=== PATIENT | female | born 1965 | race Two or more races ===

== ENCOUNTER 2019-01-09 10:10 | Emergency (ER) | payer MEDICARE ==
--- NOTE | 2019-01-09 12:10 | CRLCR ---
HISTORY: Chest pain COMPARISON: None available FINDINGS: A portable erect AP view of the chest was obtained at 1055 hours. Incidental note is made of a calcified granuloma in the lateral left upper chest. The lungs are otherwise clear. No focal or diffuse infiltrates are present. The heart is normal in size. The mediastinum is normal in appearance. The osseous structures are normal in appearance for the patient`s age. IMPRESSION: No active disease seen in the chest. Dictated by Amos Ortiz MD @ Jan 09 2019 12:07PM Signed by Dr. Amos Ortiz @ Jan 09 2019 12:08PM
--- NOTE | 2019-01-09 12:17 | EDM.PDOC ---
ED HPI GENERAL MEDICAL PROBLEM - General Chief Complaint: Chest Pain Stated Complaint: [facility] Time Seen by Provider: 01/09/19 12:14 Source of Information: Reports: Patient History Limitations: Reports: No Limitations - History of Present Illness INITIAL COMMENTS - FREE TEXT/NARRATIVE: pt arrived with a history of increased chest pain for the past month. She has used nitro. She had the pain wake her up this am at 4 am and she took nitro and would get relief and then the pain would come back. She has a hsitory of multiple stents ans she also has coronary artery spasm Onset: Today, Other ( started at 4 am. ) Duration: Hour(s): Location: Reports: Chest Associated Symptoms: Reports: Chest Pain, Shortness of Breath Chest Pain Score (Numeric/FACES): 1 Neck Pain Score (Numeric/FACES): 9 - Related Data Allergies Allergy/AdvReac Type Severity Reaction Status Date / Time acetaminophen [From Vicodin] Allergy Other Verified 01/09/19 12:58 banana Allergy Other Verified 01/09/19 12:58 clopidogrel [From Plavix] Allergy Other Verified 01/09/19 12:58 droperidol Allergy Anxiety Verified 01/09/19 12:58 gabapentin Allergy Swelling Verified 01/09/19 12:58 hydrocodone [From Vicodin] Allergy Other Verified 01/09/19 12:58 prochlorperazine Allergy Tachycardia Verified 01/09/19 10:25 [From Compazine] sertraline [From Zoloft] Allergy Hallucinati Verified 01/09/19 12:58 ons sumatriptan [From Imitrex] Allergy Tachycardia Verified 01/09/19 10:25 varenicline [From Chantix] Allergy Other Verified 01/09/19 12:58 atropine AdvReac Itching Verified 01/09/19 12:58 Home Meds: Home Meds ALPRAZolam [Alprazolam] 0.5 mg PO TID 01/09/19 [History] Apixaban [Eliquis] 5 mg PO BID 01/09/19 [History] Aspirin [Ecotrin EC] 325 mg PO DAILY 01/09/19 [History] Carvedilol 25 mg PO TID 01/09/19 [History] Diazepam [Valium] 10 mg PO TID 01/09/19 [History] Diclofenac Sodium [Voltaren] 100 gm TP QID 01/09/19 [History] Famotidine [Pepcid] 20 mg PO BID 01/09/19 [History] Furosemide 40 mg PO DAILY 01/09/19 [History] Ibuprofen [Motrin] 600 mg PO Q6H PRN 01/09/19 [History] Isosorbide Mononitrate [Imdur] 120 mg PO DAILY 01/09/19 [History] Losartan Potassium 100 mg PO DAILY 01/09/19 [History] Morphine [MS Contin] 60 mg PO BID 01/09/19 [History] NIFEdipine [Adalat cc] 60 mg PO DAILY 01/09/19 [History] Nitroglycerin 0.4 mg SL ASDIRECTED 01/09/19 [History] Potassium Chloride 10 meq PO BID 01/09/19 [History] Prasugrel HCl [Effient] 10 mg PO DAILY 01/09/19 [History] Pregabalin [Lyrica] 75 mg PO TID 01/09/19 [History] Ranolazine [Ranolazine ER] 500 mg PO BID 01/09/19 [History] Sotalol HCl [Sorine] 80 mg PO BID 01/09/19 [History] atorvaSTATin [Lipitor] 40 mg PO BEDTIME 01/09/19 [History] hydrOXYzine HCl [Atarax] 25 mg PO TID 01/09/19 [History] oxyCODONE 5 mg PO QID 01/09/19 [History] traZODone 150 mg PO DAILY 01/09/19 [History] Past Medical History HEENT History: Reports: Cataract Cardiovascular History: Reports: Angina, Blood Clots/VTE/DVT, Bypass, CAD, Heart Failure, High Cholesterol, Hypertension, SOB on Exertion, Stents, Other ( See Below) Other Cardiovascular History: heart spasms Respiratory History: Reports: [employer] History: Reports: Musculoskeletal History: Reports: Arthritis, Fracture, Neck Pain, Chronic Neurological History: Reports: Migraines Psychiatric History: Reports: Anxiety, Depression, Other (See Below) Other Psychiatric History: insomnia - Past Surgical History Cardiovascular Surgical History: Reports: Coronary Artery Stent Female Surgical History: Reports: Section Musculoskeletal Surgical History: Reports: Arthroscopic Knee Social & Family History - Tobacco Use Smoking Status *Q: Current Every Day Smoker Years of Tobacco use: 32 Packs/Tins Daily: 1 - Caffeine Use Caffeine Use: Reports: None - Recreational Drug Use Recreational Drug Use: No ED ROS GENERAL - Review of Systems Review Of Systems: See Below Constitutional: Reports: No Symptoms HEENT: Reports: No Symptoms Respiratory: Reports: Shortness of Breath Cardiovascular: Reports: Chest Pain Endocrine: Reports: No Symptoms GI/Abdominal: Reports: No Symptoms : Reports: No Symptoms Musculoskeletal: Reports: No Symptoms Skin: Reports: No Symptoms ED EXAM, GENERAL - Physical Exam Exam: See Below Free Text/Narrative:: pt arrived with pain in her left chest. She is mildly sob. Pt had taken 6 nitros prior to arrival. Exam Limited By: No Limitations General Appearance: Alert, No Apparent Distress, Anxious, Other (pt was pain free on arrival ) Ears: Normal TMs Nose: Normal Inspection Throat/Mouth: Normal Inspection Head: Atraumatic Neck: Normal Inspection Respiratory/Chest: No Respiratory Distress Cardiovascular: Regular Rate, Rhythm GI/Abdominal: Soft, Non-Tender (Female) Exam: Deferred Rectal (Female) Exam: Deferred Back Exam: Normal Inspection Extremities: Normal Inspection Neurological: Alert, Oriented, Normal Cognition Psychiatric: Normal Affect Course - Vital Signs Last Recorded V/S: Last Vital Signs Temp 36.3 C 01/09/19 10:16 Pulse 94 01/09/19 14:16 Resp 15 01/09/19 14:16 BP 193/107 H 01/09/19 14:16 Pulse Ox 96 01/09/19 14:16 - Orders/Labs/Meds Orders: Active Orders 24 hr Category Date Time Status EKG Documentation Completion [RC] ASDIRECTED Care 01/09/19 10:21 Active EKG 12 Lead [EK] Routine Ther 01/09/19 10:21 Ordered Labs: Laboratory Tests 01/09/19 01/09/19 01/09/19 Range/Units 10:54 10:54 10:54 WBC 11.8 H (4.5-11.0) K/uL RBC 4.92 (3.30-5.50) M/uL Hgb 15.4 H (12.0-15.0) g/dL Hct 44.7 (36.0-48.0) % MCV 91 (80-98) fL MCH 31 (27-31) pg MCHC 35 (32-36) % Plt Count 218 (150-400) K/uL Neut % (Auto) 75 H (36-66) % Lymph % (Auto) 15 L (24-44) % [place] % (Auto) 10 H (2-6) % Eos % (Auto) 1 L (2-4) % Baso % (Auto) 0 (0-1) % Sodium 139 L (140-148) mmol/L Potassium 3.7 (3.6-5.2) mmol/L Chloride 103 (100-108) mmol/L Carbon Dioxide 27 (21-32) mmol/L Anion Gap 12.7 (5.0-14.0) mmol/L BUN 6 L (7-18) mg/dL Creatinine 0.8 (0.6-1.0) mg/dL Est Cr Clr Drug Dosing 70.23 mL/min Estimated GFR (MDRD) > 60 (>60) Glucose 147 H (74-106) mg/dL Calcium 8.3 L (8.5-10.1) mg/dL Total Bilirubin 0.4 (0.2-1.0) mg/dL AST 18 (15-37) U/L ALT 31 (12-78) U/L Alkaline Phosphatase 180 H (46-116) U/L Troponin I 0.020 (0.000-0.056) ng/mL Total Protein 7.4 (6.4-8.2) g/dL Albumin 3.0 L (3.4-5.0) g/dL Globulin 4.4 H (2.3-3.5) g/dL Albumin/Globulin Ratio 0.7 L (1.2-2.2) 01/09/19 Range/Units 13:19 WBC (4.5-11.0) K/uL RBC (3.30-5.50) M/uL Hgb (12.0-15.0) g/dL Hct (36.0-48.0) % MCV (80-98) fL MCH (27-31) pg MCHC (32-36) % Plt Count (150-400) K/uL Neut % (Auto) (36-66) % Lymph % (Auto) (24-44) % [place] % (Auto) (2-6) % Eos % (Auto) (2-4) % Baso % (Auto) (0-1) % Sodium (140-148) mmol/L Potassium (3.6-5.2) mmol/L Chloride (100-108) mmol/L Carbon Dioxide (21-32) mmol/L Anion Gap (5.0-14.0) mmol/L BUN (7-18) mg/dL Creatinine (0.6-1.0) mg/dL Est Cr Clr Drug Dosing mL/min Estimated GFR (MDRD) (>60) Glucose (74-106) mg/dL Calcium (8.5-10.1) mg/dL Total Bilirubin (0.2-1.0) mg/dL AST (15-37) U/L ALT (12-78) U/L Alkaline Phosphatase (46-116) U/L Troponin I < 0.017 (0.000-0.056) ng/mL Total Protein (6.4-8.2) g/dL Albumin (3.4-5.0) g/dL Globulin (2.3-3.5) g/dL Albumin/Globulin Ratio (1.2-2.2) Meds: Medications Discontinued Medications Generic Name Dose Route Start Last Admin Trade Name Mustapha PRN Reason Stop Dose Admin Baclofen 10 mg 01/09/19 13:13 01/09/19 13:25 Lioresal PO 01/09/19 13:14 10 mg ONETIME ONE Administration Hydromorphone HCl 0.5 mg 01/09/19 13:13 01/09/19 13:24 Dilaudid IM 01/09/19 13:14 0.5 mg ONETIME ONE Administration - Re-Assessments/Exams Free Text/Narrative Re-Assessment/Exam: 01/09/19 14:43 pt had 2 trops both of which was neg. Her chest pain has not returned. She has neck pain on the rt She had a cervical spine series which shows degenerative changes. She was given baclofen and dilaudid for pain Departure - Departure Time of Disposition: 14:39 Disposition: Home, Self-Care 01 Condition: Fair Clinical Impression: Atypical chest pain, Cervical paraspinal muscle spasm, History of coronary artery stent placement - Discharge Information Referrals: PCP,None [Primary Care Provider] - Forms: ED Department Discharge Care Plan Goals: moist warm heat to post cervical area, baclofen 10 mg bid, tramodol 50 mg q6h prn for pain, rtc if pain should get worse. [facility] was contacted and they will set up a urgent appt with Dr Nguyen--cardiology - My Orders Last 24 Hours: My Active Orders 01/09/19 10:21 EKG Documentation Completion [RC] ASDIRECTED EKG 12 Lead [EK] Routine - Assessment/Plan Last 24 Hours: My Active Orders 01/09/19 10:21 EKG Documentation Completion [RC] ASDIRECTED EKG 12 Lead [EK] Routine
[2019-01-09] MEDS ORDERED: HYDROmorphone 0.5 MG/0.5 ML Syringe IM ONE (13:13)
[2019-01-09] MEDS ORDERED: Baclofen 10 MG Tab PO ONE (13:13)
--- NOTE | 2019-01-09 14:34 | CRLCR ---
INDICATION: Severe right-sided neck pain TECHNIQUE: Flexion, extension, lateral, swimmer`s, frontal, and open mouth odontoid views were obtained. COMPARISON: None FINDINGS: The lateral views include the skull base to the mid thoracic spine. Bones: Alignment is normal. No fractures or significant bone lesions. The flexion and extension views only include the skullbase to the C6 level. No anterolisthesis identified when comparing the flexion and extension views. Joints: Mild multilevel degenerative disc and facet changes. Soft tissues: Unremarkable. IMPRESSION: No acute abnormality identified. Consider MRI for further evaluation of neck pain. Dictated by Elizabeth Acevedo MD @ Jan 09 2019 2:33PM Signed by Dr. Elizabeth Acevedo @ Jan 09 2019 2:33PM
== END 2019-01-09 14:54 | disposition home or self-care (01) ==
LOC: JP.ED 10:10
DX: R07.89 Other chest pain (principal); M62.838 Other muscle spasm; I11.0 Hypertensive heart disease with heart failure; I50.9 Heart failure, unspecified; E78.00 Pure hypercholesterolemia, unspecified; F41.9 Anxiety disorder, unspecified; F32.9 Major depressive disorder, single episode, unspecified; G43.909 Migraine, unspecified, not intractable, without status migrainosus; F17.210 Nicotine dependence, cigarettes, uncomplicated; Z95.5 Presence of coronary angioplasty implant and graft; Z86.711 Personal history of pulmonary embolism; Z88.6 Allergy status to analgesic agent; Z88.5 Allergy status to narcotic agent; Z91.018 Allergy to other foods; Z88.8 Allergy status to other drugs, medicaments and biological substances; Z79.82 Long term (current) use of aspirin; Z79.899 Other long term (current) drug therapy; Z86.718 Personal history of other venous thrombosis and embolism
CPT/HCPCS: 36415; 71045; 72050; 80053; 84484; 85025; 93005; 96372; 99283; 99285; A9270; J1170

== ENCOUNTER 2019-04-04 07:13 | Emergency (ER) | payer MEDICARE ==
--- NOTE | 2019-04-04 07:19 | EDM.PDOC ---
ED HPI GENERAL MEDICAL PROBLEM - General Chief Complaint: Chest Pain Stated Complaint: CHEST PAIN Time Seen by Provider: 04/04/19 07:19 Source of Information: Reports: Patient History Limitations: Reports: No Limitations - History of Present Illness INITIAL COMMENTS - FREE TEXT/NARRATIVE: pt woke up at 12 midnight and she had chest pain. She took a nitro ad she did get relief. She woke up again this am and she had chest pain and she was sweaty at this time. n Onset: Today, Sudden Duration: Hour(s): Location: Reports: Chest Associated Symptoms: Reports: Chest Pain, Diaphoresis, Nausea/Vomiting, Other ( pt did not vomit but was nauseated and did take zoforan. ) - Related Data Allergies Allergy/AdvReac Type Severity Reaction Status Date / Time acetaminophen [From Vicodin] Allergy Other Verified 04/04/19 07:18 banana Allergy Other Verified 04/04/19 07:18 clopidogrel [From Plavix] Allergy Other Verified 04/04/19 07:18 droperidol Allergy Anxiety Verified 04/04/19 07:18 gabapentin Allergy Swelling Verified 04/04/19 07:18 hydrocodone [From Vicodin] Allergy Other Verified 04/04/19 07:18 prochlorperazine Allergy Tachycardia Verified 04/04/19 07:18 [From Compazine] sertraline [From Zoloft] Allergy Hallucinati Verified 04/04/19 07:18 ons sumatriptan [From Imitrex] Allergy Tachycardia Verified 04/04/19 07:18 varenicline [From Chantix] Allergy Other Verified 04/04/19 07:18 atropine AdvReac Itching Verified 04/04/19 07:18 Home Meds: Home Meds Apixaban [Eliquis] 5 mg PO BID 01/09/19 [History] Aspirin [Ecotrin EC] 325 mg PO DAILY 01/09/19 [History] Furosemide 40 mg PO DAILY 01/09/19 [History] Ibuprofen [Motrin] 600 mg PO Q6H PRN 01/09/19 [History] Isosorbide Mononitrate [Imdur] 120 mg PO DAILY 01/09/19 [History] Losartan Potassium 100 mg PO DAILY 01/09/19 [History] Morphine [MS Contin] 60 mg PO BID 01/09/19 [History] NIFEdipine [Adalat cc] 60 mg PO DAILY 01/09/19 [History] Nitroglycerin 0.4 mg SL ASDIRECTED 01/09/19 [History] Potassium Chloride 10 meq PO BID 01/09/19 [History] Prasugrel HCl [Effient] 10 mg PO DAILY 01/09/19 [History] Ranolazine [Ranolazine ER] 500 mg PO BID 01/09/19 [History] Sotalol HCl [Sorine] 80 mg PO BID 01/09/19 [History] atorvaSTATin [Lipitor] 40 mg PO BEDTIME 01/09/19 [History] carvediloL [Carvedilol] 25 mg PO TID 01/09/19 [History] oxyCODONE 5 mg PO QID 01/09/19 [History] Past Medical History HEENT History: Reports: Cataract Cardiovascular History: Reports: Angina, Blood Clots/VTE/DVT, Bypass, CAD, Heart Failure, High Cholesterol, Hypertension, SOB on Exertion, Stents, Other ( See Below) Other Cardiovascular History: heart spasms 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: Musculoskeletal History: Reports: Arthritis, Fracture, Neck Pain, Chronic Neurological History: Reports: Migraines Psychiatric History: Reports: Anxiety, Depression, Other (See Below) Other Psychiatric History: insomnia - Past Surgical History Cardiovascular Surgical History: Reports: Coronary Artery Stent Female Surgical History: Reports: Section Musculoskeletal Surgical History: Reports: Arthroscopic Knee Social & Family History - Caffeine Use Caffeine Use: Reports: None ED ROS GENERAL - Review of Systems Review Of Systems: See Below Constitutional: Reports: Diaphoresis, Other (pt vomited once and she took nitro each time. She did think she got some relief with the nitro. ) HEENT: Reports: No Symptoms Respiratory: Reports: Shortness of Breath Cardiovascular: Reports: Chest Pain, Other (pain is low in the chest and she did vomit. Pt is painfree at this time. ) Endocrine: Reports: No Symptoms GI/Abdominal: Reports: Nausea, Vomiting : Reports: No Symptoms Musculoskeletal: Reports: No Symptoms Skin: Reports: No Symptoms ED EXAM, GENERAL - Physical Exam Exam: See Below Free Text/Narrative:: pt arrived with lower chest pain and nausea. She did get diaphoretic with the last pain. She did have tacos for supper last nite. Exam Limited By: No Limitations General Appearance: Alert, Anxious, Other (pt is painfree at this time. ) Ears: Normal TMs Nose: Normal Inspection Throat/Mouth: Normal Inspection Head: Atraumatic Neck: Normal Inspection Respiratory/Chest: No Respiratory Distress Cardiovascular: Regular Rate, Rhythm GI/Abdominal: Soft, Tender, Other (pt has some tenderness in the rt upper abdoman. ) (Female) Exam: Deferred Rectal (Female) Exam: Deferred Back Exam: Normal Inspection Extremities: Normal Inspection Neurological: Alert, Oriented, Normal Cognition Psychiatric: Normal Affect Course - Vital Signs Last Recorded V/S: Last Vital Signs Temp 36.0 C 04/04/19 07:15 Pulse 72 04/04/19 09:06 Resp 14 04/04/19 09:06 BP 122/66 04/04/19 09:06 Pulse Ox 94 L 04/04/19 09:06 - Orders/Labs/Meds Orders: Active Orders 24 hr Category Date Time Status EKG Documentation Completion [RC] ASDIRECTED Care 04/04/19 07:18 Active EKG 12 Lead [EK] Routine Ther 04/04/19 07:18 Ordered Labs: Laboratory Tests 04/04/19 04/04/19 04/04/19 Range/Units 07:31 07:31 07:31 WBC 9.4 (4.5-11.0) K/uL RBC 4.85 (3.30-5.50) M/uL Hgb 15.0 (12.0-15.0) g/dL Hct 44.7 (36.0-48.0) % MCV 92 (80-98) fL MCH 31 (27-31) pg MCHC 34 (32-36) % Plt Count 276 (150-400) K/uL Neut % (Auto) 65 (36-66) % Lymph % (Auto) 24 (24-44) % [place] % (Auto) 9 H (2-6) % Eos % (Auto) 2 (2-4) % Baso % (Auto) 0 (0-1) % APTT (27.0-36.0) sec D-Dimer, Quantitative (0.0-400.0) ng/mL Sodium 137 L (140-148) mmol/L Potassium 3.6 (3.6-5.2) mmol/L Chloride 102 (100-108) mmol/L Carbon Dioxide 24 (21-32) mmol/L Anion Gap 14.6 H (5.0-14.0) mmol/L BUN 10 D (7-18) mg/dL Creatinine 1.1 H (0.6-1.0) mg/dL Est Cr Clr Drug Dosing 51.07 mL/min Estimated GFR (MDRD) 52 L (>60) Glucose 150 H (74-106) mg/dL Calcium 7.9 L (8.5-10.1) mg/dL Total Bilirubin 0.4 (0.2-1.0) mg/dL AST 20 (15-37) U/L ALT 32 (12-78) U/L Alkaline Phosphatase 146 H (46-116) U/L Troponin I < 0.017 (0.000-0.056) ng/mL NT-Pro-B Natriuret Pep (5-125) pg/mL Total Protein 7.0 (6.4-8.2) g/dL Albumin 3.0 L (3.4-5.0) g/dL Globulin 4.0 H (2.3-3.5) g/dL Albumin/Globulin Ratio 0.8 L (1.2-2.2) 04/04/19 04/04/19 04/04/19 Range/Units 07:31 07:31 07:31 WBC (4.5-11.0) K/uL RBC (3.30-5.50) M/uL Hgb (12.0-15.0) g/dL Hct (36.0-48.0) % MCV (80-98) fL MCH (27-31) pg MCHC (32-36) % Plt Count (150-400) K/uL Neut % (Auto) (36-66) % Lymph % (Auto) (24-44) % [place] % (Auto) (2-6) % Eos % (Auto) (2-4) % Baso % (Auto) (0-1) % APTT 26.9 L (27.0-36.0) sec D-Dimer, Quantitative 169 (0.0-400.0) ng/mL Sodium (140-148) mmol/L Potassium (3.6-5.2) mmol/L Chloride (100-108) mmol/L Carbon Dioxide (21-32) mmol/L Anion Gap (5.0-14.0) mmol/L BUN (7-18) mg/dL Creatinine (0.6-1.0) mg/dL Est Cr Clr Drug Dosing mL/min Estimated GFR (MDRD) (>60) Glucose (74-106) mg/dL Calcium (8.5-10.1) mg/dL Total Bilirubin (0.2-1.0) mg/dL AST (15-37) U/L ALT (12-78) U/L Alkaline Phosphatase (46-116) U/L Troponin I (0.000-0.056) ng/mL NT-Pro-B Natriuret Pep 313 H (5-125) pg/mL Total Protein (6.4-8.2) g/dL Albumin (3.4-5.0) g/dL Globulin (2.3-3.5) g/dL Albumin/Globulin Ratio (1.2-2.2) 04/04/19 Range/Units 09:23 WBC (4.5-11.0) K/uL RBC (3.30-5.50) M/uL Hgb (12.0-15.0) g/dL Hct (36.0-48.0) % MCV (80-98) fL MCH (27-31) pg MCHC (32-36) % Plt Count (150-400) K/uL Neut % (Auto) (36-66) % Lymph % (Auto) (24-44) % [place] % (Auto) (2-6) % Eos % (Auto) (2-4) % Baso % (Auto) (0-1) % APTT (27.0-36.0) sec D-Dimer, Quantitative (0.0-400.0) ng/mL Sodium (140-148) mmol/L Potassium (3.6-5.2) mmol/L Chloride (100-108) mmol/L Carbon Dioxide (21-32) mmol/L Anion Gap (5.0-14.0) mmol/L BUN (7-18) mg/dL Creatinine (0.6-1.0) mg/dL Est Cr Clr Drug Dosing mL/min Estimated GFR (MDRD) (>60) Glucose (74-106) mg/dL Calcium (8.5-10.1) mg/dL Total Bilirubin (0.2-1.0) mg/dL AST (15-37) U/L ALT (12-78) U/L Alkaline Phosphatase (46-116) U/L Troponin I < 0.017 (0.000-0.056) ng/mL NT-Pro-B Natriuret Pep (5-125) pg/mL Total Protein (6.4-8.2) g/dL Albumin (3.4-5.0) g/dL Globulin (2.3-3.5) g/dL Albumin/Globulin Ratio (1.2-2.2) Meds: Medications Discontinued Medications Generic Name Dose Route Start Last Admin Trade Name Freq PRN Reason Stop Dose Admin Ondansetron HCl 4 mg 04/04/19 08:50 Zofran Odt PO 04/04/19 08:51 ONETIME ONE Oxycodone/Acetaminophen 1 tab 04/04/19 08:27 04/04/19 08:37 Percocet 325-5 Mg PO 04/04/19 08:28 1 tab ONETIME ONE Administration - Re-Assessments/Exams Free Text/Narrative Re-Assessment/Exam: 04/04/19 08:38 pt arrived with a history of 2 episodes of pain in the lower chest area. She did vomit and was very nauseated. She did take zoforan at home. She was painfree on arrival. 04/04/19 08:40 pt has a normal trop and this will be repeated. Her liver enzymes are not elevated except for the alk phos with mild elevation. A USD of her GB shows a good sized stone in the neck of the GB. this could have been the cause of the pain. 04/04/19 10:15 pt had a second trop that was normal. Hospitalization was offered to the pt and she refused. The pt definitely needs a stress test. If she is unwilling to stay will schedule for a stres test and have her return if her pain should reoccur. She does have a history of coronary artery spasm. She also has had stents. Departure - Departure Time of Disposition: 10:17 Disposition: Home, Self-Care 01 Condition: Fair Clinical Impression: Calculus in biliary tract, History of angina Referrals: PCP,None [Primary Care Provider] - Forms: ED Department Discharge Care Plan Goals: pt refused hospitalization, rtc for a lexiscan. Give pt a disc of her US and a copy of the US report. Sepsis Event Note - Evaluation Sepsis Screening Result: No Definite Risk - Focused Exam Vital Signs: Vital Signs Temp Pulse Resp BP Pulse Ox 04/04/19 09:06 72 14 122/66 94 L 04/04/19 08:38 80 12 114/59 L 94 L 04/04/19 08:06 78 15 108/52 L 93 L 04/04/19 07:37 84 14 91/54 L 94 L 04/04/19 07:15 36.0 C 80 13 96/57 L 94 L Date Exam was Performed: 04/04/19 Time Exam was Performed: 10:15 - My Orders Last 24 Hours: My Active Orders 04/04/19 07:18 EKG Documentation Completion [RC] ASDIRECTED EKG 12 Lead [EK] Routine - Assessment/Plan Last 24 Hours: My Active Orders 04/04/19 07:18 EKG Documentation Completion [RC] ASDIRECTED EKG 12 Lead [EK] Routine
--- NOTE | 2019-04-04 08:06 | CRLCR ---
INDICATION: Chest pain. TECHNIQUE: Chest 1 view COMPARISON: Chest radiograph 01/09/2019. FINDINGS: New patchy opacity in the medial right lung base. New hazy opacity in the left lung base. These may represent atelectasis or infiltrate. Calcified granuloma left upper lung. No pleural effusion or pneumothorax. Heart size upper limits of normal. Normal pulmonary vascularity. IMPRESSION: New patchy opacity in the medial right lung base and new hazy opacity in the left lung base. These may represent atelectasis or infiltrate. Dictated by Indu Chang MD @ Apr 04 2019 8:00AM Signed by Dr. Indu Chang @ Apr 04 2019 8:03AM
[2019-04-04] MEDS ORDERED: Acetaminophen/oxyCODONE 325-5 MG Tab PO ONE (08:27)
[2019-04-04] MEDS ORDERED: Ondansetron 4 MG Tab.DIS PO ONE (08:50)
--- NOTE | 2019-04-04 08:59 | CRLUS ---
INDICATION: Right upper abdominal pain and nausea TECHNIQUE: Ultrasound abdomen limited. Sonographic images of the right upper quadrant were obtained using sepulveda-scale and color Doppler images. COMPARISON: FINDINGS: Liver: Mildly diffusely echogenic suggesting fatty infiltration. No masses. No intrahepatic biliary dilatation. Gallbladder: Large 2 cm stone in the neck of the gallbladder. Normal wall thickness. No pericholecystic fluid. Common bile duct: 5.5 mm. Pancreas: Normal. Right kidney: 10.0 x 5.5 x 5.5 cm. Normal echotexture and cortex. No masses, stones, or hydronephrosis. Vasculature: Proximal IVC patent. IMPRESSION: Cholelithiasis without biliary dilatation or gallbladder wall thickening. Dictated by Pernell Rodríguez MD @ Apr 04 2019 8:53AM Signed by Dr. Pernell Rodríguez @ Apr 04 2019 8:56AM
== END 2019-04-04 11:00 | disposition home or self-care (01) ==
LOC: JP.ED 07:13
DX: K80.80 Other cholelithiasis without obstruction (principal); I11.0 Hypertensive heart disease with heart failure; I50.9 Heart failure, unspecified; F41.9 Anxiety disorder, unspecified; F32.9 Major depressive disorder, single episode, unspecified; Z79.82 Long term (current) use of aspirin; Z79.899 Other long term (current) drug therapy; Z91.018 Allergy to other foods; Z88.8 Allergy status to other drugs, medicaments and biological substances
CPT/HCPCS: 36415; 71045; 76705; 80053; 83880; 84484; 85025; 85379; 85730; 93005; 93010; 99285; A9270

== ENCOUNTER 2019-11-01 16:42 | Emergency (ER) | payer MEDICARE ==
--- NOTE | 2019-11-01 17:27 | EDM.PDOC ---
ED HPI GENERAL MEDICAL PROBLEM - General Chief Complaint: Respiratory Problem Stated Complaint: MEDICAL VIA [facility] Time Seen by Provider: 11/01/19 17:10 Source of Information: Reports: Patient, Old Records History Limitations: Reports: No Limitations - History of Present Illness INITIAL COMMENTS - FREE TEXT/NARRATIVE: 54 yo female recently had a CABG in [facility]. She reports a remote hx of severe Legionnaire's Dz requiring intubation for an extended period. Today she fell asleep at home and awoke to a coughing spell that worsened her already mild chronic SOB and worsened her sternal pain. She thinks she developed a panic attack as a result of this. Is breathing better now on low flow oxygen here in the ER. She says it was debated about sending her home on oxygen when she left the hospital and it was decided not to. EMS transported from her home in [place]. A neb tx was administered en route as well as low flow O2. Onset: Today Onset Date: 11/01/19 Duration: Minutes:, Improving Location: Reports: Chest Quality: Reports: Burning (at site of sternotomy) Severity: Moderate Improves with: Reports: Rest Worsens with: Reports: Movement Context: Reports: Other (see HPI) Associated Symptoms: Reports: Chest Pain, Cough, Shortness of Breath. 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, Oxygen Mid-Anterior Chest Pain Score (Numeric/FACES): 7 - Related Data Allergies Allergy/AdvReac Type Severity Reaction Status Date / Time acetaminophen [From Vicodin] Allergy Other Verified 04/04/19 07:18 banana Allergy Other Verified 04/04/19 07:18 clopidogrel [From Plavix] Allergy Other Verified 04/04/19 07:18 droperidol Allergy Anxiety Verified 04/04/19 07:18 gabapentin Allergy Swelling Verified 04/04/19 07:18 hydrocodone [From Vicodin] Allergy Other Verified 04/04/19 07:18 prochlorperazine Allergy Tachycardia Verified 04/04/19 07:18 [From Compazine] sertraline [From Zoloft] Allergy Hallucinati Verified 04/04/19 07:18 ons sumatriptan [From Imitrex] Allergy Tachycardia Verified 04/04/19 07:18 varenicline [From Chantix] Allergy Other Verified 04/04/19 07:18 atropine AdvReac Itching Verified 04/04/19 07:18 Home Meds: Home Meds Apixaban [Eliquis] 5 mg PO BID 01/09/19 [History] Aspirin [Ecotrin EC] 325 mg PO DAILY 01/09/19 [History] Furosemide 40 mg PO DAILY 01/09/19 [History] Ibuprofen [Motrin] 600 mg PO Q6H PRN 01/09/19 [History] Losartan Potassium 100 mg PO DAILY 01/09/19 [History] Nitroglycerin 0.4 mg SL ASDIRECTED 01/09/19 [History] Potassium Chloride 10 meq PO BID 01/09/19 [History] Ranolazine [Ranolazine ER] 500 mg PO BID 01/09/19 [History] oxyCODONE 5 mg PO QID 01/09/19 [History] Albuterol Sulfate [Albuterol Sulfate Hfa] 18 gm IH Q4H PRN #1 hfa.aer.ad 11/01/19 [Rx] Past Medical History HEENT History: Reports: Cataract Cardiovascular History: Reports: Angina, Blood Clots/VTE/DVT, Bypass, CAD, Heart Failure, High Cholesterol, Hypertension, SOB on Exertion, Stents, Other (See Below) Other Cardiovascular History: heart spasms 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: Musculoskeletal History: Reports: Arthritis, Fracture, Neck Pain, Chronic Neurological History: Reports: Migraines Psychiatric History: Reports: Anxiety, Depression, Other (See Below) Other Psychiatric History: insomnia - Infectious Disease History Infectious Disease History: Reports: Chicken Pox - Past Surgical History Cardiovascular Surgical History: Reports: Coronary Artery Stent Female Surgical History: Reports: Section Musculoskeletal Surgical History: Reports: Arthroscopic Knee Social & Family History - Tobacco Use Smoking Status *Q: Former Smoker Used Tobacco, but Quit: Yes Month/Year Tobacco Last Used: - Caffeine Use Caffeine Use: Reports: Soda - Recreational Drug Use Recreational Drug Use: No ED ROS GENERAL - Review of Systems Review Of Systems: See Below Constitutional: Reports: No Symptoms HEENT: Reports: No Symptoms Respiratory: Reports: Shortness of Breath, Wheezing, Cough. Denies: Sputum, Hemoptysis Cardiovascular: Reports: Edema (mild chronic LE edema, not worse.), Other (sternal pain) GI/Abdominal: Reports: No Symptoms : Reports: No Symptoms Musculoskeletal: Reports: No Symptoms Skin: Reports: No Symptoms Neurological: Reports: No Symptoms Psychiatric: Reports: Anxiety ED EXAM, GENERAL - Physical Exam Exam: See Below Exam Limited By: No Limitations General Appearance: Alert, WD/WN, No Apparent Distress Eye Exam: Bilateral Eye: Normal Inspection Ears: Normal External Exam, Normal Canal, Hearing Grossly Normal Ear Exam: Bilateral Ear: Auricle Normal, Canal Normal Nose: Normal Inspection, No Blood Throat/Mouth: Normal Inspection, Normal Lips, Normal Oropharynx, Normal Voice, No Airway Compromise Head: Atraumatic, Normocephalic Neck: Normal Inspection Respiratory/Chest: No Respiratory Distress, No Accessory Muscle Use, Rhonchi (scattered), Wheezing (faint). No: Lungs Clear, Normal Breath Sounds, Chest Non-Tender, Accessory Muscle Use Cardiovascular: Regular Rate, Rhythm, No Edema GI/Abdominal: Normal Bowel Sounds, Soft, Non-Tender, No Distention Back Exam: Normal Inspection Extremities: Normal Inspection, Normal Range of Motion, Non-Tender, Pedal Edema (trace pitting edema to both legs below the knees). No: No Pedal Edema Neurological: Alert, Oriented, CN II-XII Intact, Normal Cognition, No Motor/Sensory Deficits Psychiatric: Normal Affect, Normal Mood Skin Exam: Warm, Dry, Intact, Normal Color, No Rash Course - Vital Signs Last Recorded V/S: Last Vital Signs Temp 36.3 C 11/01/19 17:13 Pulse 87 11/01/19 17:13 Resp 27 H 11/01/19 17:13 BP 134/95 H 11/01/19 17:13 Pulse Ox 87 L 11/01/19 17:13 - Orders/Labs/Meds Orders: Active Orders 24 hr Category Date Time Status Chest 1V Frontal [CR] Stat Exams 11/01/19 17:20 Taken Meds: Medications Discontinued Medications Generic Name Dose Route Start Last Admin Trade Name Freq PRN Reason Stop Dose Admin Furosemide 80 mg 11/01/19 17:39 11/01/19 17:44 Lasix IM 11/01/19 17:40 80 mg ONETIME ONE Administration - Radiology Interpretation Free Text/Narrative:: CXR-new R pleural effusion Departure - Departure Time of Disposition: 18:15 Disposition: Home, Self-Care 01 Clinical Impression: Pleural effusion, right, Bronchospasm, Panic attack - Discharge Information *PRESCRIPTION DRUG MONITORING PROGRAM REVIEWED*: Not Applicable *COPY OF PRESCRIPTION DRUG MONITORING REPORT IN PATIENT [place]AL[place]: Not Applicable Instructions: Bronchospasm, Adult Referrals: PCP,None [Primary Care Provider] - Forms: ED Department Discharge Additional Instructions: Continue your current medications. Add albuterol MDI 2 puffs every 4 hrs as needed. Avoid salt or salty foods. Recheck if worse. Sepsis Event Note (ED) - Evaluation Sepsis Screening Result: No Definite Risk - Focused Exam Vital Signs: Vital Signs Temp Pulse Resp BP Pulse Ox 11/01/19 17:13 36.3 C 87 27 H 134/95 H 87 L 11/01/19 16:50 36.3 C 87 27 H 134/95 H 87 L - My Orders Last 24 Hours: My Active Orders 11/01/19 17:20 Chest 1V Frontal [CR] Stat - Assessment/Plan Last 24 Hours: My Active Orders 11/01/19 17:20 Chest 1V Frontal [CR] Stat
[2019-11-01] MEDS ORDERED: Furosemide 40 MG/4 ML VIAL IM ONE (17:39)
--- NOTE | 2019-11-02 09:10 | CR ---
CHEST: Portable 11/01/2019 at 5:35 PM CLINICAL HISTORY:SOB COMPARISON:04/04/2019 FINDINGS: There has been previous sternotomy. Heart is enlarged. Pulmonary vascular is mildly cephalized. There is blunting the right costophrenic angle. There is patchy infiltrate in the right lower lobe.. Impression: Cardiomegaly with mild vascular cephalization may represent some pulmonary venous hypertension Right lower lobe infiltrate Small right pleural effusion
== END 2019-11-01 18:25 | disposition home or self-care (01) ==
LOC: JP.ED 16:42
DX: J98.01 Acute bronchospasm (principal); J90 Pleural effusion, not elsewhere classified; F41.0 Panic disorder [episodic paroxysmal anxiety]; I25.10 Atherosclerotic heart disease of native coronary artery without angina pectoris; I11.0 Hypertensive heart disease with heart failure; I50.9 Heart failure, unspecified; Z88.6 Allergy status to analgesic agent; Z91.018 Allergy to other foods; Z88.8 Allergy status to other drugs, medicaments and biological substances; Z88.5 Allergy status to narcotic agent; Z87.891 Personal history of nicotine dependence; Z79.82 Long term (current) use of aspirin; Z79.01 Long term (current) use of anticoagulants; Z79.899 Other long term (current) drug therapy; Z86.718 Personal history of other venous thrombosis and embolism; Z86.711 Personal history of pulmonary embolism
CPT/HCPCS: 71045; 96372; 99283; J1940

== ENCOUNTER 2020-06-08 12:49 | Emergency (ER) | payer MEDICARE, MEDICAID ==
[2020-06-08] MEDS ORDERED: Lidocaine 2% Viscous Solution 15 ML Cup ONE (12:56)
[2020-06-08] MEDS ORDERED: Aluminum Hydroxide/Magnesium Hydroxide/Simethicone Susp 30 ML Cup ONE (12:56)
[2020-06-08] MEDS ORDERED: Sodium Chloride 0.9% 10 ML Syringe FLUSH PRN (13:03)
[2020-06-08] MEDS ORDERED: Aspirin 81 MG Tab.Chew PO ONE (13:08)
--- NOTE | 2020-06-08 13:09 | EDM.PDOC ---
ED HPI GENERAL MEDICAL PROBLEM - General Chief Complaint: Cardiovascular Problem Stated Complaint: VOMITTING/RECENT STINT Time Seen by Provider: 06/08/20 13:04 Source of Information: Reports: Patient, Old Records, RN History Limitations: Reports: No Limitations - History of Present Illness INITIAL COMMENTS - FREE TEXT/NARRATIVE: 54 yo black female presents with a 2 hr duration of anterior chest pain with radiation to her anterior neck. Had CABG at [facility] last October. Quit smoking just 7 d ago. Took all her meds today except her aspirin. 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 Lives in [place] and came here today due to it being closer. Has no family doctor. Was lying in bed at onset of today's sx's. Has a pHx also of GB disease. Onset: Today, Sudden Onset Date: 06/08/20 Onset Time: 11:00 Duration: Hour(s): (2), Constant Location: Reports: Neck, Chest Quality: Reports: Pressure Severity: Severe Improves with: Reports: None Worsens with: Reports: None Context: Reports: Other (See HPI) Associated Symptoms: Reports: Nausea/Vomiting. Denies: Chest Pain, Diaphoresis, Fever/Chills, Shortness of Breath Treatments INGOT CASTER: Reports: Other (see below) (none) - Related Data Allergies Allergy/AdvReac Type Severity Reaction Status Date / Time acetaminophen [From Vicodin] Allergy Other Verified 06/08/20 14:14 banana Allergy Other Verified 06/08/20 14:14 clopidogrel [From Plavix] Allergy Other Verified 06/08/20 14:14 droperidol Allergy Anxiety Verified 06/08/20 14:14 gabapentin Allergy Swelling Verified 06/08/20 14:14 hydrocodone [From Vicodin] Allergy Other Verified 06/08/20 14:14 prochlorperazine Allergy Tachycardia Verified 06/08/20 14:14 [From Compazine] sertraline [From Zoloft] Allergy Hallucinati Verified 06/08/20 14:14 ons sumatriptan [From Imitrex] Allergy Tachycardia Verified 06/08/20 14:14 varenicline [From Chantix] Allergy Other Verified 06/08/20 14:14 atropine AdvReac Itching Verified 06/08/20 14:14 Home Meds: Home Meds Apixaban [Eliquis] 5 mg PO BID 01/09/19 [History] Aspirin [Ecotrin EC] 325 mg PO DAILY 01/09/19 [History] Furosemide 40 mg PO DAILY 01/09/19 [History] Ibuprofen [Motrin] 600 mg PO Q6H PRN 01/09/19 [History] Losartan Potassium 100 mg PO DAILY 01/09/19 [History] Nitroglycerin 0.4 mg SL ASDIRECTED 01/09/19 [History] Potassium Chloride 10 meq PO BID 01/09/19 [History] Ranolazine [Ranolazine ER] 500 mg PO BID 01/09/19 [History] oxyCODONE 5 mg PO QID 01/09/19 [History] Albuterol Sulfate [Albuterol Sulfate Hfa] 18 gm IH Q4H PRN #1 hfa.aer.ad 11/01/19 [Rx] Past Medical History HEENT History: Reports: Cataract Cardiovascular History: Reports: Angina, Blood Clots/VTE/DVT, Bypass, CAD, Heart Failure, High Cholesterol, Hypertension, SOB on Exertion, Stents, Other (See Below) Other Cardiovascular History: heart spasms 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: Musculoskeletal History: Reports: Arthritis, Fracture, Neck Pain, Chronic Neurological History: Reports: Migraines Psychiatric History: Reports: Anxiety, Depression, Other (See Below) Other Psychiatric History: insomnia - Infectious Disease History Infectious Disease History: Reports: Chicken Pox - Past Surgical History Cardiovascular Surgical History: Reports: Coronary Artery Stent Female Surgical History: Reports: Section Musculoskeletal Surgical History: Reports: Arthroscopic Knee Social & Family History - Caffeine Use Caffeine Use: Reports: Soda ED ROS GENERAL - Review of Systems Review Of Systems: See Below Constitutional: Reports: No Symptoms HEENT: Reports: No Symptoms Respiratory: Reports: No Symptoms Cardiovascular: Reports: Chest Pain Endocrine: Reports: No Symptoms GI/Abdominal: Reports: Nausea, Vomiting Musculoskeletal: Reports: No Symptoms Skin: Reports: No Symptoms Neurological: Reports: No Symptoms Psychiatric: Reports: No Symptoms ED EXAM, GENERAL - Physical Exam Exam: See Below Exam Limited By: No Limitations General Appearance: Alert, WD/WN, No Apparent Distress, Anxious Eye Exam: Bilateral Eye: Normal Inspection Ears: Normal External Exam, Hearing Grossly Normal Ear Exam: Bilateral Ear: Auricle Normal, Canal Normal Nose: Normal Inspection, No Blood Throat/Mouth: Normal Inspection, Normal Lips, Normal Oropharynx, Normal Voice, No Airway Compromise. No: Normal Teeth (edentulous) Head: Atraumatic, Normocephalic Neck: Normal Inspection Respiratory/Chest: No Respiratory Distress, Lungs Clear, Normal Breath Sounds, No Accessory Muscle Use Cardiovascular: Regular Rate, Rhythm, No Edema GI/Abdominal: Normal Bowel Sounds, Soft, Non-Tender, No Distention Back Exam: Normal Inspection Extremities: Normal Inspection, Normal Range of Motion, Non-Tender, No Pedal Edema. No: Pedal Edema Neurological: Alert, Oriented, CN II-XII Intact, Normal Cognition, No Motor/Sensory Deficits Psychiatric: Normal Affect, Anxious Skin Exam: Warm, Dry, Intact, Normal Color, No Rash #1 Interpretation EKG Date: 06/08/20 Time: 13:20 Rhythm: NSR Rate (Beats/Min): 71 [place]: Normal P-Wave: Present QRS: Normal ST-T: Elevated (subtle new elevation in inferior leads.) QT: Normal Comparison: Change From Previous EKG Course - Vital Signs Text/Narrative:: [facility] called @ 1611h, Last Recorded V/S: Last Vital Signs Temp 36.2 C 06/08/20 15:47 Pulse 43 L 06/08/20 16:34 Resp 17 06/08/20 16:34 BP 113/64 06/08/20 16:34 Pulse Ox 93 L 06/08/20 16:34 - Orders/Labs/Meds Orders: Active Orders 24 hr Category Date Time Status Cardiac Monitoring [RC] .As Directed Care 06/08/20 13:03 Active EKG Documentation Completion [RC] ASDIRECTED Care 06/08/20 13:03 Active Oxygen Therapy Adult [Oxygen Therapy, ED] [RC] Care 06/08/20 14:02 Active ASDIRECTED Abdomen Ltd [US] Stat Exams 06/08/20 14:15 Ordered Chest 1V Frontal [CR] Stat Exams 06/08/20 13:15 Taken Chest 1V Frontal [CR] Stat Exams 06/08/20 15:38 Taken Chest 2V [CR] Stat Exams 06/08/20 15:25 Ordered Heparin Sodium/D5W [Heparin 25,000 Units in D5W 500 ML] Med 06/08/20 14:15 Active 25,000 units in 500 ml IV TITRATE Nitroglycerin [Nitrostat] Med 06/08/20 13:12 Active 0.4 mg SL Q5M PRN Nitroglycerin/D5W [Nitroglycerin 25 MG/D5W 250 ML] Med 06/08/20 16:15 Active 25 mg in 250 ml IV TITRATE Sodium Chloride 0.9% [Saline Flush] Med 06/08/20 13:03 Active 10 ml FLUSH ASDIRECTED PRN Saline Lock Insert [OM.PC] Routine Oth 06/08/20 13:03 Ordered EKG 12 Lead [EK] Routine Ther 06/08/20 13:03 Ordered Medication Orders Heparin Sodium/Dextrose (Heparin 25,000 Units In D5w 500 Ml) 25,000 units in 500 mls @ 20 mls/hr IV TITRATE FRANCESCO Last Admin: 06/08/20 15:24 Dose: 1,000 units/hr, 20 mls/hr Documented by: ALEJANDRO Cosigned by: TIERRA Nitroglycerin/Dextrose (Nitroglycerin 25 Mg/D5w 250 Ml) 25 mg in 250 mls @ 6 mls/hr IV TITRATE FRANCESCO; Protocol Nitroglycerin (Nitrostat) 0.4 mg SL Q5M PRN PRN Reason: Chest Pain Last Admin: 06/08/20 13:17 Dose: 0.4 mg Documented by: RIYA Sodium Chloride (Saline Flush) 10 ml FLUSH ASDIRECTED PRN PRN Reason: Keep Vein Open Last Admin: 06/08/20 15:56 Dose: 10 ml Documented by: ALEJANDRO Labs: Laboratory Tests 06/08/20 06/08/20 06/08/20 Range/Units 13:23 13:23 15:20 WBC 12.6 H (4.5-11.0) K/uL RBC 5.64 H (3.30-5.50) M/uL Hgb 17.2 H D (12.0-15.0) g/dL Hct 51.3 H (36.0-48.0) % MCV 91 (80-98) fL MCH 31 (27-31) pg MCHC 34 (32-36) % Plt Count 281 (150-400) K/uL D-Dimer, Quantitative (0.0-500.0) ng/mL Sodium 141 (140-148) mmol/L Potassium 4.4 (3.6-5.2) mmol/L Chloride 103 (100-108) mmol/L Carbon Dioxide 25 (21-32) mmol/L Anion Gap 13.5 (5.0-14.0) mmol/L BUN 13 (7-18) mg/dL Creatinine 1.1 H (0.6-1.0) mg/dL Est Cr Clr Drug Dosing 50.49 mL/min Estimated GFR (MDRD) 52 L (>60) Glucose 168 H (74-106) mg/dL Calcium 9.4 D (8.5-10.1) mg/dL Troponin I 0.031 0.711 H* (0.000-0.056) ng/mL 06/08/20 Range/Units 15:49 WBC (4.5-11.0) K/uL RBC (3.30-5.50) M/uL Hgb (12.0-15.0) g/dL Hct (36.0-48.0) % MCV (80-98) fL MCH (27-31) pg MCHC (32-36) % Plt Count (150-400) K/uL D-Dimer, Quantitative 774.91 H (0.0-500.0) ng/mL Sodium (140-148) mmol/L Potassium (3.6-5.2) mmol/L Chloride (100-108) mmol/L Carbon Dioxide (21-32) mmol/L Anion Gap (5.0-14.0) mmol/L BUN (7-18) mg/dL Creatinine (0.6-1.0) mg/dL Est Cr Clr Drug Dosing mL/min Estimated GFR (MDRD) (>60) Glucose (74-106) mg/dL Calcium (8.5-10.1) mg/dL Troponin I (0.000-0.056) ng/mL Meds: Medications Generic Name Dose Route Start Last Admin Trade Name Freq PRN Reason Stop Dose Admin Heparin Sodium/Dextrose 25,000 units in 500 mls @ 20 mls/hr 06/08/20 14:15 06/08/20 15:24 Heparin 25,000 Units In D5w 500 Ml IV 1,000 units/hr TITRATE FRANCESCO 20 mls/hr Administration 1,000 UNITS/HR Nitroglycerin/Dextrose 25 mg in 250 mls @ 6 mls/hr 06/08/20 16:15 Nitroglycerin 25 Mg/D5w 250 Ml IV TITRATE FRANCESCO Protocol 10 MCG/MIN Nitroglycerin 0.4 mg 06/08/20 13:12 06/08/20 13:17 Nitrostat SL 0.4 mg Q5M PRN Administration Chest Pain Sodium Chloride 10 ml 06/08/20 13:03 06/08/20 15:56 Saline Flush FLUSH 10 ml ASDIRECTED PRN Administration Keep Vein Open Discontinued Medications Generic Name Dose Route Start Last Admin Trade Name Mustapha PRN Reason Stop Dose Admin Al Hydroxide/Mg Hydroxide Confirm 06/08/20 12:56 Mag-Al Plus Administered 06/08/20 12:57 Dose 30 ml .ROUTE .STK-MED ONE Al Hydroxide/Mg Hydroxide 30 ml 06/08/20 15:41 06/08/20 15:45 Mag-Al Plus PO 06/08/20 15:42 30 ml ONETIME ONE Administration Aspirin 324 mg 06/08/20 13:08 06/08/20 13:14 Aspirin PO 06/08/20 13:09 324 mg ONETIME ONE Administration Atropine Sulfate 0.5 mg 06/08/20 16:32 Atropine 0.1 Mg/Ml IVPUSH 06/08/20 16:33 ONETIME ONE Heparin Sodium (Porcine) 5,000 units 06/08/20 14:01 06/08/20 15:25 Heparin Sodium IVPUSH 06/08/20 14:02 5,000 units ONETIME ONE Administration Heparin Sodium (Porcine) Confirm 06/08/20 15:10 Heparin Lock Flush 100 Units/Ml Administered 06/08/20 15:11 Dose 500 units .ROUTE .STK-MED ONE Hydromorphone HCl 1 mg 06/08/20 15:49 06/08/20 15:55 Dilaudid IVPUSH 06/08/20 15:50 1 mg ONETIME ONE Administration Hydromorphone HCl Confirm 06/08/20 15:51 Dilaudid Administered 06/08/20 15:52 Dose 1 mg .ROUTE .STK-MED ONE Lidocaine HCl Confirm 06/08/20 12:56 Xylocaine 2% Viscous Administered 06/08/20 12:57 Dose 15 ml .ROUTE .STK-MED ONE Lidocaine HCl 15 ml 06/08/20 15:42 06/08/20 15:45 Xylocaine 2% Viscous PO 06/08/20 15:43 15 ml ONETIME ONE Administration Lorazepam 1 mg 06/08/20 14:03 06/08/20 14:09 Ativan PO 06/08/20 14:04 1 mg ONETIME ONE Administration Metoprolol Tartrate 50 mg 06/08/20 13:59 06/08/20 14:10 Lopressor PO 06/08/20 14:00 50 mg ONETIME ONE Administration Morphine Sulfate Confirm 06/08/20 13:23 Morphine Administered 06/08/20 13:24 Dose 4 mg .ROUTE .STK-MED ONE Morphine Sulfate 8 mg 06/08/20 13:56 06/08/20 15:39 Morphine IVPUSH 06/08/20 13:57 8 mg ONETIME ONE Administration Morphine Sulfate 4 mg 06/08/20 14:12 06/08/20 15:37 Morphine IM 06/08/20 14:13 4 mg ONETIME ONE Administration Ondansetron HCl 4 mg 06/08/20 15:21 06/08/20 15:27 Zofran IVPUSH 06/08/20 15:22 4 mg ONETIME ONE Administration - Radiology Interpretation Free Text/Narrative:: CXR-neg GB ultrasound-single stone not impacted. There is a lesion off the bottom of the R kidney. - Re-Assessments/Exams Free Text/Narrative Re-Assessment/Exam: 06/08/20 13:15 no change with GI cocktail po Free Text/Narrative Re-Assessment/Exam: 06/08/20 13:58 Still no relief, will give more morphine. Nursing not able to start an IV, will have anesthesia attempt. Free Text/Narrative Re-Assessment/Exam: 06/08/20 16:08 2nd Trop elevated. Will send to [facility]. 06/08/20 16:33 Still having pain. 06/08/20 16:40 Triple lumen placed R jugular vein by anesthesia. Departure - Departure Time of Disposition: 17:00 Disposition: DC/Tfer to Acute Hospital 02 Reason for Transfer *Q: Other Condition: Serious Clinical Impression: Non-STEMI (non-ST elevated myocardial infarction), Elevated troponin, Elevated blood sugar HTN (hypertension) Qualifiers: Hypertension type: unspecified Qualified Code(s): I10 - Essential (primary) hypertension Referrals: PCP,None [Primary Care Provider] - Forms: ED Department Discharge Sepsis Event Note (ED) - Focused Exam Vital Signs: Vital Signs Temp Pulse Pulse Resp BP BP Pulse Ox 06/08/20 16:34 43 L 17 113/64 93 L 06/08/20 16:30 38 L 13 180/149 H 94 L 06/08/20 16:27 64 13 163/85 H 93 L 06/08/20 15:56 61 19 175/85 H 96 06/08/20 15:47 36.2 C 58 L 13 187/105 H 96 06/08/20 15:24 58 L 13 187/105 H 96 06/08/20 14:30 59 L 19 189/116 H 06/08/20 14:10 66 195/114 H 06/08/20 13:17 167/93 H - My Orders Last 24 Hours: My Active Orders 06/08/20 13:03 Cardiac Monitoring [RC] .As Directed EKG Documentation Completion [RC] ASDIRECTED Sodium Chloride 0.9% [Saline Flush] 10 ml FLUSH ASDIRECTED PRN Saline Lock Insert [OM.PC] Routine EKG 12 Lead [EK] Routine 06/08/20 13:12 Nitroglycerin [Nitrostat] 0.4 mg SL Q5M PRN 06/08/20 13:15 Chest 1V Frontal [CR] Stat 06/08/20 14:02 Oxygen Therapy Adult [Oxygen Therapy, ED] [RC] ASDIRECTED 06/08/20 14:15 Abdomen Ltd [US] Stat Heparin Sodium/D5W [Heparin 25,000 Units in D5W 500 ML] 25,000 units in 500 ml IV TITRATE 06/08/20 15:38 Chest 1V Frontal [CR] Stat 06/08/20 16:15 Nitroglycerin/D5W [Nitroglycerin 25 MG/D5W 250 ML] 25 mg in 250 ml IV TITRATE - Assessment/Plan Last 24 Hours: My Active Orders 06/08/20 13:03 Cardiac Monitoring [RC] .As Directed EKG Documentation Completion [RC] ASDIRECTED Sodium Chloride 0.9% [Saline Flush] 10 ml FLUSH ASDIRECTED PRN Saline Lock Insert [OM.PC] Routine EKG 12 Lead [EK] Routine 06/08/20 13:12 Nitroglycerin [Nitrostat] 0.4 mg SL Q5M PRN 06/08/20 13:15 Chest 1V Frontal [CR] Stat 06/08/20 14:02 Oxygen Therapy Adult [Oxygen Therapy, ED] [RC] ASDIRECTED 06/08/20 14:15 Abdomen Ltd [US] Stat Heparin Sodium/D5W [Heparin 25,000 Units in D5W 500 ML] 25,000 units in 500 ml IV TITRATE 06/08/20 15:38 Chest 1V Frontal [CR] Stat 06/08/20 16:15 Nitroglycerin/D5W [Nitroglycerin 25 MG/D5W 250 ML] 25 mg in 250 ml IV TITRATE
[2020-06-08] MEDS ORDERED: Nitroglycerin 0.4 MG Tab.SL SL PRN (13:12)
[2020-06-08] MEDS ORDERED: Morphine 4 MG/ML Syringe ONE (13:23)
[2020-06-08] MEDS ORDERED: Morphine 10 MG/ML Syringe IVPUSH ONE (13:56)
[2020-06-08] MEDS ORDERED: Metoprolol Tartrate 50 MG Tab PO ONE (13:59)
[2020-06-08] MEDS ORDERED: Heparin Sodium 5,000 Units/ML Vial IVPUSH ONE (14:01)
[2020-06-08] MEDS ORDERED: LORazepam 1 MG Tab PO ONE (14:03)
[2020-06-08] MEDS ORDERED: Morphine 4 MG/ML Syringe IM ONE (14:12)
[2020-06-08] MEDS ORDERED: Heparin Sodium/D5W 25,000 UNITS/500 ML BAG IV SCH (14:15)
[2020-06-08] MEDS ORDERED: Ondansetron 4 MG/2 ML SDV IVPUSH ONE (15:21)
[2020-06-08] MEDS ORDERED: Aluminum Hydroxide/Magnesium Hydroxide/Simethicone Susp 30 ML Cup PO ONE (15:41)
[2020-06-08] MEDS ORDERED: Lidocaine 2% Viscous Solution 15 ML Cup PO ONE (15:42)
[2020-06-08] MEDS ORDERED: HYDROmorphone 1 MG/ML Syringe IVPUSH ONE (15:49)
[2020-06-08] MEDS ORDERED: HYDROmorphone 1 MG/ML Syringe ONE (15:51)
[2020-06-08] MEDS ORDERED: Nitroglycerin/D5W 25 MG/250 ML BOTTLE IV SCH (16:15)
[2020-06-08] MEDS ORDERED: Atropine 0.1 MG/ML 10 ML Syringe IVPUSH ONE (16:32)
[2020-06-08] MEDS ORDERED: HYDROmorphone 0.5 MG/0.5 ML Syringe IVPUSH ONE (16:57)
--- NOTE | 2020-06-08 21:50 | PROC ---
DATE OF PROCEDURE: 06/08/2020 SURGEON: Garrett Bullock CRNA TIME: 1400. I was called to the emergency room by Dr. Frey to evaluate Ms. Botello for an IV. They had attempted multiple times and were unsuccessful. I did try a left forearm 20-gauge IV which was unsuccessful. I then tried a left external jugular with a micro introducer kit, and this was unsuccessful as well. The risks and benefits of a triple-lumen internal jugular on the right side were discussed with the patient, and she wished to proceed. She is a patient who had recent stents and a coronary artery bypass and is in severe chest pain. As stated, the risks and benefits of the procedure were explained to the patient. She wished to proceed with a triple-lumen subclavian catheter. She was placed in a supine position. Ultrasound guidance was used to locate the right internal jugular. She was prepped with chlorhexidine as well as 1% lidocaine skin local was used. A micro-introducer kit was inserted into the right jugular with ease. The wire was passed easily with the Seldinger technique. Then a triple-lumen catheter was inserted over the wire. There were no problems noted. Her rhythm was regular at all time. Good blood return was found. The catheter was then secured with a suture as well as Tegaderm. It was also taped in place. Blood was drawn for the laboratory department and a chest x-ray was ordered. Garrett Bullock CRNA /[id number]
--- NOTE | 2020-06-09 09:09 | US ---
Abdomen Ltd CLINICAL HISTORY: Right upper quadrant pain COMPARISON: None. TECHNIQUE: Real-time images were obtained through the right upper quadrant. FINDINGS: The liver is free of mass or biliary dilatation. There is mildly increased hepatic echogenicity. The gallbladder contains multiple stones. There is no significant wall thickening The common bile duct measures 6 mm. The pancreas is free of mass is seen. The right kidney shows a hypoechoic mass near the renal pelvis measuring 2.4 x 2.6 cm.. The IVC is normal. IMPRESSION: Cholelithiasis with no biliary dilatation 2.4 x 2.6 cm hypoechoic masslike focus extending from the right renal hilum. No flow is identified. Further investigation is recommended when patient's condition allows Fatty infiltration of the liver
--- NOTE | 2020-06-09 13:46 | CR ---
CHEST: Portable 06/08/2020 at 1:35 PM CLINICAL HISTORY:Chest pain, hypertension COMPARISON:October 2019 FINDINGS: Patient has had previous sternotomy. There is a small granuloma in the left upper lobe. The heart size, pulmonary vascularity and hilar structures are normal. No infiltrate effusion or pneumothorax is seen. IMPRESSION: No acute cardiopulmonary process. CHEST: Portable 06/08/2020 at 3:49 PM CLINICAL HISTORY:Triple lumen catheter placement COMPARISON:Earlier same day FINDINGS: Patient has had placement of a right jugular catheter. The tip is in the lower portion of the right atrium. Heart size and pulmonary vascularity are normal. There is no pneumothorax Impression: Right jugular triple lumen catheter has been placed. The tip is in the lower portion of the right atrium.
== END 2020-06-08 17:35 ==
LOC: JP.ED 12:49
DX: I21.4 Non-ST elevation (NSTEMI) myocardial infarction (principal); R73.9 Hyperglycemia, unspecified; I11.0 Hypertensive heart disease with heart failure; I50.9 Heart failure, unspecified; I25.10 Atherosclerotic heart disease of native coronary artery without angina pectoris; M19.90 Unspecified osteoarthritis, unspecified site; Z87.891 Personal history of nicotine dependence; Z86.711 Personal history of pulmonary embolism; Z95.1 Presence of aortocoronary bypass graft; Z88.6 Allergy status to analgesic agent; Z91.018 Allergy to other foods; Z88.8 Allergy status to other drugs, medicaments and biological substances; Z88.5 Allergy status to narcotic agent; Z79.01 Long term (current) use of anticoagulants; Z79.82 Long term (current) use of aspirin; Z79.899 Other long term (current) drug therapy; Z20.822 Contact with and (suspected) exposure to COVID-19
CPT/HCPCS: 36415; 71045; 76705; 80048; 84484; 85027; 85379; 93005; 96365; 96366; 96368; 96372; 96375; 96376; 99284; 99285; A9270; J1170; J1644; J2270; J2405; J3490; U0002